=== PATIENT | male | born 1955 | race Caucasian/White ===

== ENCOUNTER 2018-02-16 09:40 | Emergency (ER) | payer SELFPAY ==
[~2018-02-16] VITALS: Ht 172.7 cm; Wt 78.6 kg
[~2018-02-16 09:40] MED LIST: CHLO25CA5 PO; ESCI20TA PO
[2018-02-16 10:58] LABS: BASOPHILS % (AUTO) 0.9 % (0.0-2.0); EOSINOPHILS % (AUTO) 0.2 % (1.0-6.0); HEMATOCRIT 36.4 % (41-53); HEMOGLOBIN 12.2 g/dL (13.5-17.5); LYMPHOCYTES # (AUTO) 0.8 K/uL (1.0-4.8); LYMPHOCYTES % (AUTO) 13.6 % (22.0-44.0); MEAN CORPUSCULAR HEMOGLOBIN 29.3 pg (26.0-34.0); MEAN CORPUSCULAR HGB CONC 33.7 G/dL (31.0-37.0); MEAN CORPUSCULAR VOLUME 87 fL (80-100); MONOCYTES # (AUTO) 0.7 K/uL (0.1-1.0); MONOCYTES % (AUTO) 11.6 % (2.0-9.0); NEUTROPHILS # (AUTO) 4.3 K/uL (1.8-7.7); NEUTROPHILS % (AUTO) 73.7 % (40.0-70.0); PLATELET COUNT (AUTO) 156 K/uL (150-450); RED BLOOD CELL COUNT(AUTO) 4.18 MIL/uL (4.50-5.90); RED CELL DISTRIBUTION WIDTH 18.4 % (11.5-14.5)
[2018-02-16 11:09] LABS: ANION GAP 19 mmol/L (8-16); CARBON DIOXIDE 20 mmol/L (22-29); CHLORIDE 99 mmol/L (98-107); CREATININE 0.98 mg/dL (0.60-1.30); GLOMERULAR FILTR. RATE CALC > 60 mL/min (>60); GLUCOSE,RANDOM 95 mg/dL (70-110); POTASSIUM 3.2 mmol/L (3.5-5.1); SODIUM SERUM 138 mmol/L (136-145); UREA NITROGEN, BLOOD 9 mg/dL (7-18)
[2018-02-16 11:13] LABS: ALANINE AMINOTRANSFERASE 87 U/L (12-78); ALKALINE PHOSPHATASE 108 U/L (46-116); ASPARTATE AMINOTRANSFERASE 131 U/L (15-37); BILIRUBIN,TOTAL 0.9 mg/dL (0.1-1.0)
[2018-02-16] MEDS ORDERED: OxyCODONE HCL/ACETAMINOPHEN 5-325 MG TABLET PO ONE (12:45)
[2018-02-16 13:16] VITALS: BP 137/89
== END 2018-02-16 13:22 | disposition home or self-care (01) ==
LOC: EMS 09:44
DX: M79.651 Pain in right thigh (principal); M79.652 Pain in left thigh; G89.29 Other chronic pain; R74.0 Nonspecific elevation of levels of transaminase and lactic acid dehydrogenase [LDH]; R00.0 Tachycardia, unspecified; F10.20 Alcohol dependence, uncomplicated; I48.91 Unspecified atrial fibrillation; Y90.0 Blood alcohol level of less than 20 mg/100 ml; Z95.1 Presence of aortocoronary bypass graft; Z88.8 Allergy status to other drugs, medicaments and biological substances
CPT/HCPCS: 36415; 80053; 85025; 99284; G0480

== ENCOUNTER 2018-11-22 21:43 | Emergency (ER) | payer SELFPAY ==
[~2018-11-22] VITALS: Ht 175.3 cm; Wt 77.3 kg
[~2018-11-22 21:43] MED LIST changes: +ALBU8HFA IH; +APIX2.5T PO; +CACARB500 PO; +CITA-106 PO; +COMBISP IH; +DIGO-44 PO; +FLUT44HFA IH; +GABA-533 PO; +LISI-660 PO; +METO-408 PO; +TIOT185 IH; +VENL-67 PO
[2018-11-22] MEDS ORDERED: GABA-531 PO (21:59)
[2018-11-22 23:51] LABS: BASOPHILS % (AUTO) 1.3 % (0.0-2.0); EOSINOPHILS % (AUTO) 0.7 % (1.0-6.0); HEMATOCRIT 36.2 % (41-53); HEMOGLOBIN 11.3 g/dL (13.5-17.5); LYMPHOCYTES # (AUTO) 2.4 K/uL (1.0-4.8); LYMPHOCYTES % (AUTO) 27.8 % (22.0-44.0); MEAN CORPUSCULAR HEMOGLOBIN 25.6 pg (26.0-34.0); MEAN CORPUSCULAR HGB CONC 31.3 G/dL (31.0-37.0); MEAN CORPUSCULAR VOLUME 82 fL (80-100); MONOCYTES # (AUTO) 1.2 K/uL (0.1-1.0); NEUTROPHILS # (AUTO) 4.9 K/uL (1.8-7.7); NEUTROPHILS % (AUTO) 56.2 % (40.0-70.0); PLATELET COUNT (AUTO) 232 K/uL (150-450); RED BLOOD CELL COUNT(AUTO) 4.42 MIL/uL (4.50-5.90); RED CELL DISTRIBUTION WIDTH 19.9 % (11.5-14.5)
[2018-11-23] MEDS ORDERED: CeFAZolin 1 GM/DEXTROSE 50 ML IV ONE
[2018-11-23 00:05] LABS: ALANINE AMINOTRANSFERASE 74 U/L (12-78); ALBUMIN 2.9 g/dL (3.4-5.0); ALKALINE PHOSPHATASE 94 U/L (46-116); ANION GAP 8 mmol/L (8-16); ASPARTATE AMINOTRANSFERASE 65 U/L (15-37); BILIRUBIN,TOTAL 0.6 mg/dL (0.1-1.0); CALCIUM, TOTAL 8.6 mg/dL (8.8-10.5); CARBON DIOXIDE 27 mmol/L (22-29); CHLORIDE 101 mmol/L (98-107); CREATININE 0.92 mg/dL (0.60-1.30); GLOMERULAR FILTR. RATE CALC > 60 mL/min (>60); GLUCOSE,RANDOM 118 mg/dL (70-110); SODIUM SERUM 136 mmol/L (136-145); UREA NITROGEN, BLOOD 23 mg/dL (7-18)
[2018-11-23] MEDS ORDERED: APIX5TAB PO ×2 (00:12→00:22)
[2018-11-23] MEDS ORDERED: ATOR20TA86 PO (00:22)
[2018-11-23] MEDS ORDERED: TIZA4TAB4 PO (00:22)
[2018-11-23] MEDS ORDERED: CARV6 PO (00:22)
[2018-11-23] MEDS ORDERED: [UNRECOGNIZED DRUG - CODE] PO (00:22)
[2018-11-23] MEDS ORDERED: [UNRECOGNIZED DRUG - CODE] TP (00:23)
[2018-11-23] MEDS ORDERED: FURO40I PO (00:23)
[2018-11-23] MEDS ORDERED: FLUT44HFA IH (00:23)
[2018-11-23] MEDS ORDERED: LISI-660 PO (00:23)
[2018-11-23] MEDS ORDERED: IPRA4AER IH (00:23)
[2018-11-23 00:30] VITALS: BP 124/74
[2018-11-24] MEDS ORDERED: DSS100 PO (07:48)
[2018-11-24] MEDS ORDERED: CITA-106 PO (07:48)
[2018-11-24] MEDS ORDERED: METO-558 PO (07:48)
[2018-11-24] MEDS ORDERED: ATOR40TA28 PO (07:48)
[2018-11-24] MEDS ORDERED: THIA100T67 PO (07:48)
[2018-11-24] MEDS ORDERED: ASPI-556 PO (07:48)
== END 2018-11-23 01:30 | disposition home or self-care (01) ==
LOC: EMS 21:48
DX: L03.115 Cellulitis of right lower limb (principal); I48.91 Unspecified atrial fibrillation; F17.210 Nicotine dependence, cigarettes, uncomplicated; F31.9 Bipolar disorder, unspecified; Z88.8 Allergy status to other drugs, medicaments and biological substances; Z79.899 Other long term (current) drug therapy
CPT/HCPCS: 36415; 80053; 85025; 93005; 93971; 96365; 99284; G0480; J0690

== ENCOUNTER 2018-11-23 16:57 | Emergency (ER) | payer SELFPAY ==
[~2018-11-23] VITALS: Ht 170.2 cm; Wt 77.3 kg
[~2018-11-23 16:57] MED LIST changes: -ALBU8HFA IH; -APIX2.5T PO; +APIX5TAB PO; +ATOR20TA86 PO; -CACARB500 PO; +CARV6 PO; -CITA-106 PO; -COMBISP IH; -DIGO-44 PO; +FURO40I PO; +GABA-531 PO; -GABA-533 PO; +IPRA4AER IH; -METO-408 PO; -TIOT185 IH; +TIZA4TAB4 PO; -VENL-67 PO; +[UNRECOGNIZED DRUG - CODE] PO; +[UNRECOGNIZED DRUG - CODE] TP
[2018-11-23 17:17] VITALS: BP 118/62
[2018-11-24] MEDS ORDERED: ASPI-556 PO (07:48)
[2018-11-24] MEDS ORDERED: THIA100T67 PO (07:48)
[2018-11-24] MEDS ORDERED: ATOR40TA28 PO (07:48)
[2018-11-24] MEDS ORDERED: DSS100 PO (07:48)
[2018-11-24] MEDS ORDERED: CITA-106 PO (07:48)
[2018-11-24] MEDS ORDERED: METO-558 PO (07:48)
== END 2018-11-23 18:45 | disposition left against medical advice (07) ==
LOC: EMS 16:57
DX: F10.239 Alcohol dependence with withdrawal, unspecified (principal); R47.81 Slurred speech; I48.91 Unspecified atrial fibrillation; F31.9 Bipolar disorder, unspecified; F17.210 Nicotine dependence, cigarettes, uncomplicated; Z53.21 Procedure and treatment not carried out due to patient leaving prior to being seen by health care provider

== ENCOUNTER 2018-11-24 07:19 | Emergency (ER) | payer SELFPAY ==
[~2018-11-24] VITALS: Ht 170.2 cm; Wt 77.3 kg
[~2018-11-24 07:19] MED LIST changes: +ALBU8HFA IH; +APIX2.5T PO; +CACARB500 PO; +CITA-106 PO; +COMBISP IH; +DIGO-44 PO; +GABA-533 PO; +METO-408 PO; +TIOT185 IH; +VENL-67 PO
[2018-11-24] MEDS ORDERED: METO-558 PO (07:48)
[2018-11-24] MEDS ORDERED: CITA-106 PO (07:48)
[2018-11-24] MEDS ORDERED: ATOR40TA28 PO (07:48)
[2018-11-24] MEDS ORDERED: DSS100 PO (07:48)
[2018-11-24] MEDS ORDERED: ASPI-556 PO (07:48)
[2018-11-24] MEDS ORDERED: THIA100T67 PO (07:48)
[2018-11-24] MEDS ORDERED: SODIUM CHLORIDE 0.9% 1,000 ML IV ONE (08:45)
[2018-11-24 08:53] LABS: BASOPHILS % (AUTO) 1.1 % (0.0-2.0); HEMATOCRIT 38.3 % (41-53); HEMOGLOBIN 11.9 g/dL (13.5-17.5); LYMPHOCYTES # (AUTO) 1.7 K/uL (1.0-4.8); LYMPHOCYTES % (AUTO) 23.1 % (22.0-44.0); MEAN CORPUSCULAR HEMOGLOBIN 25.6 pg (26.0-34.0); MEAN CORPUSCULAR HGB CONC 31.2 G/dL (31.0-37.0); MEAN CORPUSCULAR VOLUME 82 fL (80-100); MONOCYTES # (AUTO) 1.4 K/uL (0.1-1.0); NEUTROPHILS # (AUTO) 4.3 K/uL (1.8-7.7); NEUTROPHILS % (AUTO) 56.8 % (40.0-70.0); PLATELET COUNT (AUTO) 215 K/uL (150-450); RED BLOOD CELL COUNT(AUTO) 4.66 MIL/uL (4.50-5.90); RED CELL DISTRIBUTION WIDTH 20.3 % (11.5-14.5)
[2018-11-24] MEDS ORDERED: ChlordiazePOXIDE HCL 25 MG CAPSULE PO ONE (11:15)
[2018-11-24 12:03] VITALS: BP 108/70
== END 2018-11-24 13:58 | disposition home or self-care (01) ==
LOC: EMS 07:21
DX: F10.129 Alcohol abuse with intoxication, unspecified (principal); I48.91 Unspecified atrial fibrillation; F31.9 Bipolar disorder, unspecified; F17.210 Nicotine dependence, cigarettes, uncomplicated; Z76.0 Encounter for issue of repeat prescription; Z88.8 Allergy status to other drugs, medicaments and biological substances; Z79.82 Long term (current) use of aspirin; Z79.899 Other long term (current) drug therapy; Y90.8 Blood alcohol level of 240 mg/100 ml or more
CPT/HCPCS: 36415; 85025; 99283; G0480; J7030

== ENCOUNTER 2019-01-03 17:39 | Emergency (ER) | payer MEDICAID ==
[~2019-01-03] VITALS: Ht 175.3 cm; Wt 77.3 kg
[~2019-01-03 17:39] MED LIST changes: -APIX2.5T PO; +ASPI-556 PO; -ATOR20TA86 PO; +ATOR40TA28 PO; -CARV6 PO; -CITA-106 PO; -COMBISP IH; -ESCI20TA PO; +FURO20 PO; -FURO40I PO; -GABA-531 PO; -METO-408 PO; +METO-558 PO; +PRED10 PO; +PRED20 PO; +PRED5 PO; +THIA100T67 PO; -TIZA4TAB4 PO; +TRAM50TA4 PO; -[UNRECOGNIZED DRUG - CODE] PO; -[UNRECOGNIZED DRUG - CODE] TP
[2019-01-03] MEDS ORDERED: KETOROLAC TROMETHAMINE 30 MG/ML VIAL IM ONE (19:00)
[2019-01-03 19:19] VITALS: BP 120/75
== END 2019-01-03 19:35 | disposition home or self-care (01) ==
LOC: EMS 17:40
DX: G89.29 Other chronic pain (principal); M54.2 Cervicalgia; M54.9 Dorsalgia, unspecified; I48.91 Unspecified atrial fibrillation; G47.30 Sleep apnea, unspecified; F10.20 Alcohol dependence, uncomplicated; F31.9 Bipolar disorder, unspecified; F17.210 Nicotine dependence, cigarettes, uncomplicated; Z95.1 Presence of aortocoronary bypass graft; Z95.0 Presence of cardiac pacemaker; Z79.899 Other long term (current) drug therapy; Z88.8 Allergy status to other drugs, medicaments and biological substances
CPT/HCPCS: 96372; 99283; J1885